=== PATIENT | male | born 1975 | race Caucasian/White ===

== ENCOUNTER 2018-11-29 16:17 | Observation (INO) | payer OTHER ==
[2018-11-29] MEDS ORDERED: MORPHINE SULFATE 4 MG/ML VIAL IV ONE ×2 (16:19→16:50)
[2018-11-29] MEDS ORDERED: 0.9 % SODIUM CHLORIDE 1,000 ML IV ONE ×2 (16:19→16:50)
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
[2018-11-29 16:28] LABS: NEUTROPHILS # 5.7 # k/uL (1.4-7.7)
[2018-11-29 16:37] LABS: eGFR (Non-African) > 60
[2018-11-29] MEDS ORDERED: IBUPROFEN 400 MG TABLET PO PRN (17:40)
[2018-11-29] MEDS ORDERED: ACETAMINOPHEN 325 MG TABLET PO PRN (17:41)
[2018-11-29 18:16] VITALS: BMI 33.9
[2018-11-29] MEDS: DOXYCYCLINE 100 MG CAPSULE PO SCH (20:35)
[2018-11-29] MEDS: 0.9 % SODIUM CHLORIDE 1,000 ML IV SCH (20:49)
[2018-11-29] MEDS ORDERED: NICOTINE 21mg 1 EACH PATCH.TD24 TD SCH (21:00)
[2018-11-29] MEDS: MORPHINE SULFATE 4 MG/ML VIAL IV PRN (21:28)
[2018-11-30] MEDS: MORPHINE SULFATE 4 MG/ML VIAL IV PRN ×3 (02:38→15:01)
[2018-11-30] MEDS: 0.9 % SODIUM CHLORIDE 1,000 ML IV SCH (05:47)
[2018-11-30] MEDS ORDERED: LORazepam 1 MG TABLET PO ONE (06:31)
[2018-11-30] MEDS ORDERED: LORazepam 0.5 MG TABLET ONE (06:43)
[2018-11-30] MEDS ORDERED: ESCITALOPRAM OXALATE 10 MG TABLET PO SCH (09:00)
[2018-11-30] MEDS: DOXYCYCLINE 100 MG CAPSULE PO SCH (09:15)
[2018-11-30] MEDS ORDERED: PANTOPRAZOLE SODIUM 40 MG TABLET.DR PO ONE (09:36)
[2018-11-30] MEDS ORDERED: MAG HYDROX/ALUMINUM HYD/SIMETH 30 ML UDC PO ONE (09:36)
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
[2018-11-30] MEDS ORDERED: SILVER SULFADIAZINE 1% TP SCH (13:00)
[2018-11-30 13:14] VITALS: BP 165/109
[2018-11-30] MEDS ORDERED: hydroCHLOROthiazide 25 MG TABLET PO SCH (15:00)
[2018-11-30] MEDS ORDERED: LOSARTAN POTASSIUM 50 MG TABLET PO SCH (15:00)
== END 2018-11-30 16:30 | disposition home or self-care (01) ==
LOC: ED 16:17 → SOUTH 17:30
PROVIDERS: ADMIT Nurse Practitioner Family; ATTEND Nurse Practitioner Family
DX: T21.23XA Burn of second degree of upper back, initial encounter (principal); T31.0 Burns involving less than 10% of body surface; X16.XXXA Contact with hot heating appliances, radiators and pipes, initial encounter; Y93.89 Activity, other specified
CPT/HCPCS: 80053; 85025; 85610; 96361; 96374; 96376; 99218; 99282; 99284; J2270; G0378; J7030; S1016